=== PATIENT | female | born 1980 | race Caucasian/White ===

== ENCOUNTER 2017-04-26 16:10 | Emergency (ER) | payer OTHER ==
[2017-04-26 16:23] VITALS: BP 93/63; PULSE 53; RESP 16; TEMP 97.9; O2SAT 99
[2017-04-26] MEDS ORDERED: IBUPROFEN 200 MG TAB PO ONE (16:26)
--- NOTE | 2017-04-26 16:34 | EDPHY ---
H & P Time Seen by Provider: 04/26/17 16:24 HPI/ROS: This patient complains of sinus pressure in the maxillary sinus region worse when she bends forward peak intensity 8/10 this morning now 5/10 at baseline achy in nature. The symptoms were preceded by 2 weeks of lesser sinus pressure and intermittent nasal congestion. She reports associated subjective fevers at times and fatigue. No other associated symptoms except for a 24 hour history of vomiting 4 days ago and 2 days of diarrhea that have since resolved. ROS: She reports subjective fevers but no chills. Positive mild fatigue. No other constitutional symptoms. HEENT: No ear pain. No sore throat. No generalized headache. Only sinus pressure that again worsens when she bends forward. Pulmonary: No cough. Cardiovascular: No lightheadedness GI: No nausea vomiting since 4 days ago. 5 point ROS is otherwise negative. Smoking Status: Never smoked Physical Exam: Physical Exam Vital signs are normal. General: No acute distress HEENT: Nose: Yellow nasal discharge with swollen nasal mucosa right more than left. She has sinus tenderness to percussion right maxillary more than left maxillary sinus. Ears: External canals and tympanic membranes are clear with no erythema or abnormal findings bilaterally. Oropharynx: No erythema or exudates. No dysphonia. No drooling or stridor. Eyes: Pupils equal and react to light. Extraocular motions are intact. Neck: Supple with no meningismus. No lymphadenopathy Lungs: Clear to auscultation bilaterally with no rales, rhonchi or wheeze. No respiratory distress. Cardiac: Regular rate and rhythm with no murmur gallop or rub Skin: No rash or pallor. Neuro: Alert. Cranial nerves 2-12 intact. with no focal deficits noted. Initial differential diagnosis: Bacterial sinusitis versus viral rhinosinusitis. Doubt migraine. Constitutional: Initial Vital Signs Temperature (C) 36.6 C 04/26/17 16:18 Heart Rate 53 L 04/26/17 16:18 Respiratory Rate 16 04/26/17 16:18 Blood Pressure 93/63 L 04/26/17 16:18 O2 Sat (%) 99 04/26/17 16:18 O2 Delivery Mode Room Air Allergies/Adverse Reactions: Penicillins Allergy (Intermediate, Verified 04/26/17 16:18) Hives Home Medications: Medication Instructions Recorded Azithromycin [Zithromax] 250 mg PO DAILY #6 tab 04/26/17 Fluticasone Nasal [Flonase Nasal 2 sprays NASAL DAILY #1 mdi 04/26/17 [place] (RX)] MDM/Departure - [facility] Medications Given: Discontinued Medications Ibuprofen (Motrin) 400 mg PO EDNOW ONE Stop: 04/26/17 16:27 Last Admin: 04/26/17 16:56 Dose: 400 mg ED Course/Re-evaluation: Given 2 weeks of findings and significant tenderness to percussion, will treat this patient for bacterial sinusitis with Zithromax and Flonase. I counseled regarding this. Clinically, no evidence of sepsis, [employer] infection or other complicating factors at this time. - Depart Disposition: Home, Routine, Self-Care Clinical Impression: Acute sinusitis Qualifiers: Sinusitis location: maxillary Recurrence: non-recurrent Qualified Code(s): J01.00 - Acute maxillary sinusitis, unspecified Condition: Good Instructions: Sinusitis (ED) Additional Instructions: Diagnosis: Acute maxillary sinusitis Plan: Ibuprofen-600 mg per 6 hours as needed for pain and swelling Humidifier Consider guaifenesin [id number] Flonase steroid nasal spray Zithromax antibiotic Return for any significant worsening despite the treatment plan. Prescriptions: Azithromycin [Zithromax] 250 mg PO DAILY #6 tab Fluticasone Nasal [Flonase Nasal [place] (RX)] 2 sprays NASAL DAILY #1 mdi Referrals: NONE *PRIMARY CARE P,. [Primary Care Provider] - As per Instructions
== END 2017-04-26 16:59 | disposition home or self-care (01) ==
LOC: CED 16:10
DX: J01.00 Acute maxillary sinusitis, unspecified (principal)